=== PATIENT | male | born 1980 | race Caucasian/White ===

== ENCOUNTER 2019-11-20 12:37 | Emergency (ER) | payer OTHER, SELFPAY ==
[2019-11-20 12:38] VITALS: BP 151/80; PULSE 73; RESP 17; RESP 18; TEMP 36.2; O2SAT 98; BMI 26.4
--- NOTE | 2019-11-20 12:44 | EKG12_ITS ---
Test Reason : Blood Pressure : / mmHG Vent. Rate : 070 BPM Atrial Rate : 070 BPM P-R Int : 180 ms QRS Dur : 092 ms QT Int : 380 ms P-R-T Axes : 027 020 044 degrees QTc Int : 410 ms Normal sinus rhythm Normal ECG Confirmed by CRYSTAL SAUCEDA, KT ([id number]), fashion editor ELDA COLON ([id number]) on 11/23/2019 10:09:14 AM Referred By: Confirmed By:KT ROJAS MD
[2019-11-20 12:48] VITALS: O2SAT 100
[2019-11-20] MEDS: 0.9% Normal Saline 1,000 ML 150 ML IV (12:52)
[2019-11-20] MEDS: Aspirin 81 MG TAB.CHEW 324 MG PO (12:52)
--- NOTE | 2019-11-20 12:54 | NURSING ---
no old ekgs
[2019-11-20 12:59] LABS: Absolute Lymphocyte Count 1.75 X10^3/uL (0.83-4.51); Absolute Neutrophil Count 3.9 X10^3/uL (2.0-7.7); Basophil# 0.03 X10^3/uL; Basophil% 0.5 % (0-1); Eosinophil# 0.07 X10^3/uL; Eosinophils% 1.1 % (0-5); Hematocrit 47.2 % (40-54); Lymphocyte # 1.75 X10^3/ul (4.0); Lymphocyte % 28.7 % (19-41); Mean Corp Hgb Conc 33.9 g/dL (32-36); Mean Corpuscular Hgb 29.6 pg (27.0-32.0); Mean Corpuscular Volume 87.4 fL (80-94); Mean Platelet Vol. 9.6 fl (6.2-12.0); Monocyte# 0.35 X10^3/uL; Monocyte% 5.7 % (0-10); NRBC Flagged by Analyzer 0 % (0-5); Neutrophil # 3.87 X10^3/uL (2.7-7.7); Neutrophil % 63.7 % (47-70); Platelet Count 212 K/mm3 (150-450); RBC Distribution Width CV 12.5 % (11.6-14.6); RBC Distribution Width SD 39.4 fl (35.1-43.9); White Blood Count 6.1 K/mm3 (4.4-11.0)
--- NOTE | 2019-11-20 13:11 | RAD_ITS ---
STUDY: X-RAY CHEST REASON FOR EXAM: Male, 38 years old. Chest pressure x 1 week, no cough, no fever TECHNIQUE: Single AP portable view of the chest. COMPARISON: Comparison is made with prior examination dated June 12, 2013. FINDINGS: EKG electrodes are seen. The lungs are clear and expanded. There is no demonstrated pleural abnormality. Normal size heart. Normal mediastinum and anita. Normal visualized pulmonary arteries. Normal visualized aortic arch and descending thoracic aorta. Normal visualized thoracic spine. Normal visualized ribs, clavicles, and shoulders. There is no demonstrated abnormality of the visualized soft tissue structures of the upper abdomen. RAD/Chest 1 View (Portable) IMPRESSION: Normal x-ray examination of the chest. Electronically Signed: Deshawn Domínguez, at 13:53 EDT , Service support ,
[2019-11-20 13:19] LABS: Anion Gap 5 (5-15); BUN 12 mg/dL (7-18); BUN/Creat Ratio 10.6 RATIO (10-20); Calcium,Total 9.4 mg/dL (8.5-10.1); Chloride 103 mmol/L (98-107); Creatinine, Serum 1.13 mg/dL (0.70-1.30); EST Glomerular Filtration Rate 78 mL/min (>60); Est Glom Filt Rate - Afr Amer 94 mL/min (>60); Estimated Creatinine Clearance 93.31 ml/min; Glucose 101 mg/dL (74-106); Potassium 3.9 mmol/L (3.5-5.1); Sodium Level 137 mmol/L (136-145)
[2019-11-20 13:37] VITALS: BP 114/85; PULSE 72; RESP 17; O2SAT 98
[2019-11-20 14:00] VITALS: BP 125/78; PULSE 66; RESP 12; O2SAT 100
--- NOTE | 2019-11-20 14:04 | ED.VISSUMM ---
- ER Visit Summary Date of Service: 11/20/19 Chief Complaint: Chest pain History of Present Illness: The patient is a 38 M with no primary care physician. He reports he has had chest pain that occurs in the evening for the past week. Begins while he is at rest and lasts hours at a time. He describes it as a pressure. States that it began again approximately 4 hours ago and it is been constant since that time. Is 5-10 worsened to a 10 currently. Is worsened by nothing including exertion, movement of his arms, or breathing. It is relieved by 1 beer or deep breaths. He denies any associated nausea or vomiting. Reports that he does feel diaphoretic and short of breath at times. Patient denies any chest pain with exertion or change in dyspnea exertion in the past month. No recent travel. No ankle swelling or calf pain. He has no risk factors for coronary artery disease. He does not smoke. No personal or family history of DVT. Physical Examination: Vitals: Stable. Afebrile. General: Well-nourished and well-developed. Head: Normocephalic atraumatic. Neck: Supple, no lymphadenopathy. No JVD. Nontender. Cardiovascular: Regular rate and rhythm. No murmurs. Respiratory: No respiratory distress. Clear to auscultation bilaterally. Abdominal: Soft, nontender, nondistended, normal bowel sounds. No guarding, rebound, or peritoneal signs. Back: Nontender. Extremities: Nontender, no edema. Skin: Normal color, no rash. Neurologic: Alert and oriented ?3. Cranial nerves II through XII are intact. Normal strength and sensation. Psych: Normal affect. Test Results: EKG is sinus at [address] changes. CBC is normal. Chem-7 is normal. Troponin is negative. Clinical Impression(s) from Imaging Studies Chest X-Ray 11/20/19 13:11 IMPRESSION: Normal x-ray examination of the chest. Electronically Signed: Deshawn Domínguez, at 13:53 EDT , Service support , Emergency Department Course and Treatment: Patient was treated with aspirin. He is resting comfortably. Treatment Plan: Patient has a heart score of 0. I feel is a suitable candidate for further outpatient evaluation. He will be discharged instructions to follow-up with Dr. Hoang as soon as possible. Return to the emergency department for any worsening symptoms. Disposition: To home in improved and stable condition. Impression: 1. Atypical chest pain. 2. GUANACO score of 0. 3. Heart score of 0. This note was generated with [employer] dictation software. It may contain incorrect words, spelling, and punctuation that were not noted in review of the chart prior to signing ED Disposition - Plan for ED Patient: Disposition: Home or Assisted Living Instructions: ED Chest Pain Atypical Unkn Cause Referrals: Rosalie Hoang DO [STAFF PHYSICIAN] - As soon as possible
== END 2019-11-20 14:15 | disposition home or self-care (01) ==
LOC: ED 13:51
PROVIDERS: Emergency Provider Emergency Medicine
DX: R07.89 Other chest pain (principal)
CPT/HCPCS: 71045; 80048; 84484; 85025; 93005; 96360; 99285; J7030

== ENCOUNTER 2025-04-26 13:40 | Emergency (ER) | payer OTHER, SELFPAY ==
[2025-04-26 13:41] VITALS: BP 136/78; PULSE 80; RESP 16; TEMP 36.6; O2SAT 98; BMI 24.4
--- NOTE | 2025-04-26 13:46 | RAD_ITS ---
PROCEDURE: CHEST 1 VIEW (PORTABLE) 04/26/2025 REASON FOR EXAM: CHEST PAIN TECHNIQUE: Frontal view of the chest. COMPARISON: None. FINDINGS: Hardware and support lines: None. Heart: Negative. Lungs: Negative for infiltrates, or pulmonary edema. Pleura: No pleural thickening. No pleural effusion. Mediastinum and aorta: Negative for hilar adenopathy. Mildly tortuous thoracic aorta. Bones: Age-appropriate degenerative changes of the spine. Other: Remainder of the exam negative. RAD/Chest 1 View (Portable) IMPRESSION: Negative for acute cardiopulmonary disease. Reading Location: [place] [id number]
--- NOTE | 2025-04-26 13:46 | EKG12_ITS ---
Test Reason : Blood Pressure : */* mmHG Vent. Rate : 74 BPM Atrial Rate : 74 BPM P-R Int : 168 ms QRS Dur : 80 ms QT Int : 372 ms P-R-T Axes : 65 22 53 degrees QTcB Int : 412 ms Normal sinus rhythm Normal ECG Confirmed by KINJAL SAUCEDA, JAROD ([id number]), material expeditor RAJ SCHILLING ([id number]) on 04/27/2025 8:07:46 AM Referred By: Confirmed By: JAROD LAYTON MD
[2025-04-26 14:02] LABS: Hematocrit 43.4 % (40-54); Hemoglobin 15.3 g/dL (13.0-16.5); Immature Granulocytes Count 0.010 X10^3/uL (0.0-0.0); Mean Corp Hgb Conc 35.3 g/dL (32-36); Mean Corpuscular Volume 85.1 fL (80-94); Mean Platelet Vol. 9.7 fl (6.2-12.0); NRBC Flagged by Analyzer 0 % (0-5); Platelet Count 220 K/mm3 (150-450); RBC Distribution Width CV 12.2 % (11.6-14.6); RBC Distribution Width SD 37.6 fl (35.1-43.9); Red Blood Count 5.10 M/mm3 (4.6-6.2); White Blood Count 5.3 K/mm3 (4.4-11.0)
[2025-04-26 14:26] VITALS: BP 125/77; PULSE 69; RESP 16; TEMP 36.8; O2SAT 97
[2025-04-26 15:09] LABS: Anion Gap 10 (5-15); BUN 13 mg/dL (4-19); BUN/Creat Ratio 12.4 RATIO (10-20); Calcium,Total 9.4 mg/dL (7.6-11.0); Carbon Dioxide 26.2 mmol/L (21.0-32.0); Chloride 103 mmol/L (98-108); Estimated Creatinine Clearance 96.69 ml/min (50-250); Glucose 122 mg/dL (70-99); Potassium 4.1 mmol/L (3.3-5.1); Troponin T High Sensitivity < 6 ng/L (<=22)
[2025-04-26 16:00] VITALS: BP 110/73; PULSE 73; RESP 18; O2SAT 97
[2025-04-26 16:51] LABS: Troponin T High Sens 2 HR < 6 ng/L (<=22)
[2025-04-26 17:00] VITALS: BP 118/73
--- NOTE | 2025-04-26 17:12 | EDS_ITS ---
HPI History of Present Illness Chief Complaint: Chest Pain Informant: patient Onset/Context/Timing Onset: Today Activity at onset: sudden Timing: Continuous Quality: Positive for Pressure Location: Left Parasternal Current Severity: Mild Maximum Severity: Moderate Worsened By: Nothing Relieved By: Nothing Associated Symptoms: Positive for Dyspnea; Negative for Nausea, Vomiting, Diaphoresis, Cough, Fever, Lightheadedness, Acid Reflux or Palpitations Narrative Narrative: Patient is a 44-year-old male. He presents with left parasternal discomfort scribes a pressure sensation without radiation. He does endorse some mild shortness of breath. Denies nausea, vomiting or diaphoresis. He denies history of VTE. He has no risk factors for VTE. He denies leg pain, swelling discoloration. He does not have history of hiatal hernia, peptic ulcer disease or GERD. He denies black or maroon-colored stool. There are no exacerbating, precipitating or alleviating factors. What concerned him today was that he had 2 episodes of pain that went down his left arm. He describes more of a tingling sensation. He is still having pain. Prior Similar Symptoms: No Recent Illness/Hospitalization: No CVD Risk Factors: Negative for Hypertension, Diabetes, Hypercholesterolemia, Family History 1' </=55 or Smoking PE Risk Factors: Negative for Recent Travel/Surgery, Recent Immobilization, Prior DVT or PE, Cancer or OCP + Smoking + >/=35 TAD Risk Factors: Negative for Marfan's Syndrome, Hypertension or Family History PFSH PFSH Medical History Non-smoker Home Medications Medication Instructions Recorded Last Taken Type aspirin 325 mg capsule 325 mg PO PRN fever or pain 04/26/25 04/26/25 History famotidine 40 mg tablet (Pepcid) 40 mg PO DAILY #14 ta bs 04/26/25 Unknown Rx Allergy/AdvReac Type Severity Reaction Status Date / Time No Known Allergies Allergy Verified 11/20/19 12:37 Social History Smoking Status: Never smoker ROS ROS ED Constitutional Constitutional ED: Denies chills, fever(s), subjective, sweats or weight loss Eyes Eyes: Reports none ENT ENT ED: Denies ear pain or rhinorrhea Cardiovascular Cardiovascular: Reports as per HPI; Denies orthopnea or paroxysmal nocturnal dyspnea Respiratory/Chest Respiratory/Chest: Denies cough, dyspnea, dyspnea on exertion, orthopnea or paroxysmal nocturnal dyspnea Gastrointestinal Gastrointestinal: Denies abdominal pain, diarrhea, melena or vomiting Genitourinary Genitourinary ED: Denies dysuria, hematuria or urinary frequency Musculoskeletal Musculoskeletal: Denies arthralgias, back pain or myalgias Integumentary Denies rash Neurologic Neurologic: Denies headache(s) or paresthesias Psychiatric Psychiatric: Denies anxiety or depression Endocrine Endocrinology: Denies cold intolerance or heat intolerance Hematologic/Lymphatic Hematologic/Lymphatic: Denies easy bleeding or easy bruising EXAM Physical Exam Const Vital Signs: 04/26/25 13:41 04/26/25 13:46 04/26/25 14:26 Temperature 98 F 98.3 F Temperature Source Oral Oral Pulse Rate 80 69 Respiratory Rate 16 16 Blood Pressure 136/78 H 125/77 H Blood Pressure Mean 97 93 Pulse Ox 98 97 Oxygen Delivery Method Room Air Room Air Room Air 04/26/25 16:00 04/26/25 17:00 Temperature Temperature Source Pulse Rate 73 Respiratory Rate 18 Blood Pressure 110/73 118/73 Blood Pressure Mean 85 88 Pulse Ox 97 Oxygen Delivery Method Room Air Vital signs noted. He initially has slightly elevated blood pressure. Positive well nourished and well developed General Appearance ED: well developed and NAD HEENT Reports moist mucous membranes normocephalic and atraumatic Eyes PERRL and EOMs intact bilaterally General Eye ED: Negative for pale conjunctiva or scleral icterus Neck no lymphadenopathy, supple and no JVD Resp normal respiratory effort and clear to auscultation bilaterally Cardio regular rate, regular rhythm, S1 normal heart sound, S2 normal heart sound and no murmurs GI normal to inspection, nondistended, normoactive bowel sounds, soft to palpation, non-tender, non-distended and no masses; Negative for hepatosplenomegaly Back/Spine no CVA tenderness Extremity normal to inspection Extremity Narrative: There is no asymmetry, swelling, discoloration, leg vein distention, palpable cords or tenderness along the distribution of the deep venous system. General Extremety ED: Negative for edema or pulses abnormal General Extremity: Negative for edema or pulses abnormal Neuro oriented x3 and CN's II-XII intact bilaterally Sensorium / Orientation: awake and alert Psych mental status grossly normal Skin no rashes or lesions noted and no wounds MDM MDM MDM Narrative Medical decision making narrative: Patient presents with chest discomfort. Need to rule out cardiac versus noncardiac. Noncardiac would include peptic ulcer disease, hiatal hernia, reflux, pulmonary. Patient's Wells score is less than 3 and PERC score is negative. There is no concern for PE. His history and physical not consistent with thoracic aortic dissection. His history and physical is not consistent with pneumothorax or pneumonia either. Lab Data Attestation: I reviewed the patient's lab results. Lab results narrative: CBC is normal. Basic metabolic panel with slight elevation of glucose of 122. 1st and 2nd troponin were less than 6. Labs: Laboratory Results - last 24 hr 04/26/25 04/26/25 13:51 15:36 WBC 5.3 RBC 5.10 Hgb 15.3 Hct 43.4 MCV 85.1 MCH 30.0 MCHC 35.3 RDW Std Deviation 37.6 RDW Coeff of Mandi 12.2 Plt Count 220 MPV 9.7 Immature Gran % (Auto) 0.200 Neut % (Auto) 66.7 Lymph % (Auto) 26.5 Addison % (Auto) 5.1 Eos % (Auto) 0.9 Baso % (Auto) 0.6 Absolute Neuts (auto) 3.6 Absolute Lymphs (auto) 1.41 Nucleated RBC % 0 Sodium 139 Potassium 4.1 Chloride 103 Carbon Dioxide 26.2 Anion Gap 10 BUN 13 Creatinine 1.06 Estim Creat Clear Calc 96.69 Est GFR (MDRD) Non-Af 90 BUN/Creatinine Ratio 12.4 Glucose 122 H Calcium 9.4 Troponin T High Sens < 6 Troponin T Hi Sens 2 Hr < 6 Radiography Chest X-Ray - ED: 2 View, Read by ED Physician, Normal, Heart, Lungs, Me diastinum, Bony Structures and No Acute Disease Diagnostic Testing: Clinical Impression(s) from Imaging Studies Chest X-Ray 04/26/25 13:46 IMPRESSION: Negative for acute cardiopulmonary disease. 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 He was informed that the cause of his pain is uncertain. What I need to make sure he does not have and is life-threatening he does not and recommend follow-up with his doctor. Discharge Plan Triage Chief Complaint: Chest Pain ED Provider: Uli Collins Dx/Rx/DC Orders Clinical Impression: Left-sided chest pain Instructions: ED Chest Pain, Noncardiac Prescriptions: New famotidine [Pepcid] 40 mg tablet 40 mg PO DAILY Qty: 14 0RF No Action aspirin 325 mg capsule 325 mg PO PRN Primary Care Provider: Care Physician,No Primary Referrals: Milagro Martinez MD [Med Staff - Supervisor [facility], Family Practice] - As Needed Care Physician,No Primary [Primary Care Provider, Medical] Print Language: Tamazight
[2025-04-26 17:28] VITALS: BP 106/71; PULSE 67; RESP 14; TEMP 36.8; O2SAT 98
== END 2025-04-26 17:34 | disposition home or self-care (01) ==
LOC: ED 14:36
PROVIDERS: Emergency Provider Emergency Medicine; Visit Provider Emergency Medicine
DX: R07.89 Other chest pain (principal); R06.02 Shortness of breath; Z79.82 Long term (current) use of aspirin
CPT/HCPCS: 71045; 80048; 84484; 85025; 93005; 99284; A4216